=== PATIENT | female | born 1995 | race Caucasian/White ===

== ENCOUNTER 2016-09-02 14:43 | Emergency (ER) | payer OTHER ==
[2016-09-02 14:51] VITALS: BP 128/76; PULSE 79; RESP 18; TEMP 97.9
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
== END 2016-09-02 15:16 | disposition home or self-care (01) ==
LOC: EC 14:43
DX: Z04.1 Encounter for examination and observation following transport accident (principal)
CPT/HCPCS: 99283